=== PATIENT | female | born 1980 | race Caucasian/White ===

== ENCOUNTER → 2016-06-14 | Outpatient (CLI) | payer BC ==
[2016-06-14 12:29] LABS: Follicle Stimulating Hormone 4.3 mIU/mL; Prolactin 17.8 ng/mL (3.0-18.6)
== END | disposition home or self-care (01) ==
LOC: LABWHC1 10:11
PROVIDERS: ATTEND Obstetrics & Gynecology
DX: N93.8 Other specified abnormal uterine and vaginal bleeding (principal)
CPT/HCPCS: 36415; 83001; 83002; 84146; 84443

== ENCOUNTER → 2020-08-08 | Outpatient (CLI) | payer BC ==
--- NOTE | 2020-08-08 15:08 | MM ---
Reason for exam: clinical finding. Baseline mammogram. History: Patient is nulliparous. Indicated problem(s): pain in the right breast. Physical Findings: Nurse did not find any significant physical abnormalities on exam. MG 3D Diag Mammo W/Cad KRISTEN Bilateral CC and MLO view(s) were taken. The breast tissue is heterogeneously dense. This may lower the sensitivity of mammography. There is no discrete abnormality. These results were verbally communicated with the patient and result sheet given to the patient on 08/08/20. ASSESSMENT: Negative, BI-RAD 1 RECOMMENDATION: Routine screening mammogram of both breasts in 1 year. Manage on a clinical basis with regard to left pain.
== END ==
LOC: RADMAMWWP 14:09
PROVIDERS: ATTEND Obstetrics & Gynecology
DX: N64.4 Mastodynia (principal)
CPT/HCPCS: 77062; 77066

== ENCOUNTER → 2021-11-14 | Outpatient (CLI) | payer BC ==
--- NOTE | 2021-11-15 11:00 | MM ---
Reason for Exam: Screening (asymptomatic). Last mammogram was performed 1 year(s) and 3 month(s) ago. Patient History: Menarche at age 9. Patient has no children. Last menstrual period: 11/06/2021 Risk Values: Sabrina 5 year model risk: 0.9%. NCI Lifetime model risk: 11.8%. Prior Study Comparison: 08/08/2020 Bilateral Diagnostic Mammogram, [facility]. Tissue Density: The breast tissue is heterogeneously dense. This may lower the sensitivity of mammography. Findings: Analyzed By CAD. There is no suspicious group of microcalcifications or new suspicious mass in either breast. Overall Assessment: Negative, BI-RAD 1 Management: Screening Mammogram of both breasts in 1 year. A clinical breast exam by your physician is recommended on an annual basis and results should be correlated with mammographic findings. Some advise bilateral breast ultrasound surveillance in patients with background dense tissue. Electronically signed and approved by: Lai Patel M.D.
== END | disposition home or self-care (01) ==
LOC: RADMAMWWP 07:36
PROVIDERS: ATTEND Obstetrics & Gynecology
DX: Z12.31 Encounter for screening mammogram for malignant neoplasm of breast (principal)
CPT/HCPCS: 77063; 77067

== ENCOUNTER → 2022-11-26 | Outpatient (CLI) | payer BC ==
--- NOTE | 2022-11-27 08:20 | MM ---
Reason for Exam: Screening (asymptomatic). Last screening mammogram was performed 12 month(s) ago. Patient History: Menarche at age 9. Patient has no children. Last menstrual period: 11/03/2022 Risk Values: Sabrina 5 year model risk: 0.9%. NCI Lifetime model risk: 11.7%. Prior Study Comparison: 08/08/2020 Bilateral Diagnostic Mammogram, [facility]. 11/14/2021 Bilateral MG 3D screening mammo w/cad, [facility]. Tissue Density: The breast tissue is heterogeneously dense. This may lower the sensitivity of mammography. Findings: Analyzed By CAD. There is no suspicious group of microcalcifications or new suspicious mass in either breast. Overall Assessment: Negative, BI-RAD 1 Management: Screening Mammogram of both breasts in 1 year. A clinical breast exam by your physician is recommended on an annual basis and results should be correlated with mammographic findings. Note on Sabrina scores and lifetime risk: 1. A Sabrina score greater than 3% is considered moderate risk. If this is the case, consider specialist referral to assess eligibility for a risk reducing agent. If overall lifetime risk for the development of breast cancer is 20% or higher, the patient may qualify for future screening with alternating mammogram and breast MRI. Electronically signed and approved by: Preston Dorado D.O.
== END | disposition home or self-care (01) ==
LOC: RADMAMWWP 06:54
PROVIDERS: ATTEND Obstetrics & Gynecology
DX: Z12.31 Encounter for screening mammogram for malignant neoplasm of breast (principal)
CPT/HCPCS: 77063; 77067

== ENCOUNTER → 2024-01-02 | Outpatient (CLI) | payer BC ==
--- NOTE | 2024-01-28 11:31 | MM ---
Reason for Exam: Screening (asymptomatic). Last mammogram was performed 1 year(s) and 2 month(s) ago. Patient History: Menarche at age 9. Patient has no children. Last menstrual period: 12/28/2023 Risk Values: Sabrina 5 year model risk: 1.0%. NCI Lifetime model risk: 11.6%. Prior Study Comparison: 08/08/2020 Bilateral Diagnostic Mammogram, [facility]. 11/14/2021 Bilateral MG 3D screening mammo w/cad, [facility]. 11/26/2022 Bilateral MG 3D screening mammo w/cad, [facility]. Tissue Density: There are scattered areas of fibroglandular density. Findings: Analyzed By CAD. Right breast: There is no suspicious group of microcalcifications or new suspicious mass. Left breast: There is no suspicious group of microcalcifications or new suspicious mass. Overall Assessment: Negative, BI-RAD 1 Management: Screening Mammogram of both breasts in [address] [facility] will attempt to contact patient to return for supplemental views and ultrasound if indicated. Patient should continue monthly self-breast exams. A clinical breast exam by your physician is recommended on an annual basis. This exam should not preclude additional follow-up of suspicious palpable abnormalities. Note on Sabrina scores and lifetime risk: 1. A Sabrina score greater than 3% is considered moderate risk. If this is the case, consider specialist referral to assess eligibility for a risk reducing agent. 2. If overall lifetime risk for the development of breast cancer is 20% or higher, the patient may qualify for future screening with alternating mammogram and breast MRI. Electronically signed and approved by: Loyd Springer DO
== END | disposition home or self-care (01) ==
LOC: RADMAMWWP 06:55
PROVIDERS: ATTEND Obstetrics & Gynecology
DX: Z12.31 Encounter for screening mammogram for malignant neoplasm of breast (principal); R92.323 Mammographic fibroglandular density, bilateral breasts
CPT/HCPCS: 77063; 77067

== ENCOUNTER → 2024-01-12 | Outpatient (CLI) | payer BC | END | disposition home or self-care (01) | LOC: LABPRL 10:20 | PROVIDERS: ATTEND Family Medicine | CPT/HCPCS: 80053; 80061; 82306; 83036; 84439; 84443; 85025 ==